=== PATIENT | female | born 1940 | race Caucasian/White ===

== ENCOUNTER → 2025-05-21 10:58 | Outpatient (REF) | payer MEDICARE, BC, SELFPAY | LOC: RCS 10:58 | PROVIDERS: ATTENDING PHYSICIAN Internal Medicine Cardiovascular Disease; FAMILY PHYSICIAN Internal Medicine | DX: I35.0 Nonrheumatic aortic (valve) stenosis (principal) | CPT/HCPCS: 93306 ==